=== PATIENT | female | born 1990 | race Caucasian/White ===

== ENCOUNTER 2020-03-03 18:48 | Emergency (ER) | payer OTHER ==
[~2020-03-03] VITALS: Ht 177.8 cm; Wt 88.9 kg
[~2020-03-03 18:48] MED LIST: ALDACTONE25 MG PO; CYCLOBENZAPRINE5 MG PO; DORYX150 MG; GARCINIA CAMBO1 EACH; NAPROSYN500 MG PO; SPRINTEC1 EACH PO
[2020-03-03] MEDS ORDERED: TAPAZOLE10 MG PO (19:41)
[2020-03-03] MEDS ORDERED: INDERAL LA120 M1 PO (19:41)
[2020-03-03] MEDS ORDERED: EPIPEN 2-P0.3 MG/0.3 IM ×2 (21:08→21:09)
[2020-03-03] MEDS ORDERED: PEPCID20 MG PO ×2 (21:08→21:09)
[2020-03-03 21:25] VITALS: BP 110/50
== END 2020-03-03 21:27 | disposition home or self-care (01) ==
LOC: ER 18:48
DX: R06.00 Dyspnea, unspecified (principal); R06.02 Shortness of breath; R11.0 Nausea; R10.9 Unspecified abdominal pain; J02.9 Acute pharyngitis, unspecified; Z79.899 Other long term (current) drug therapy; Z88.8 Allergy status to other drugs, medicaments and biological substances